=== PATIENT | female | born 1970 | race Native Hawaiian/Other Pacific Islander ===

== ENCOUNTER 2017-06-18 09:06 | Outpatient (CLI) | payer BC ==
[~2017-06-18 09:06] MED LIST: ADIPEX-P37.5 M1 OR; HYDR25TA60 PO
== END 2017-06-18 10:10 | disposition home or self-care (01) ==
LOC: US 09:06
DX: M25.561 Pain in right knee (principal)

== ENCOUNTER 2019-03-13 12:33 | Outpatient (CLI) | payer OTHER | END 2019-03-13 23:55 | disposition home or self-care (01) | LOC: US 12:33 | DX: M25.561 Pain in right knee (principal); Z96.651 Presence of right artificial knee joint; M79.661 Pain in right lower leg; R22.41 Localized swelling, mass and lump, right lower limb ==

== ENCOUNTER 2022-03-15 09:58 | Outpatient (CLI) | payer BC | END 2022-03-15 19:22 | disposition home or self-care (01) | LOC: RAD 09:58 | PROVIDERS: ATTEND Nurse Practitioner | DX: R05.3 Chronic cough (principal) ==

== ENCOUNTER 2023-01-23 09:14 | Outpatient (CLI) | payer BC | END 2023-01-23 19:07 | disposition home or self-care (01) | LOC: US 09:14 | PROVIDERS: ATTEND Internal Medicine | DX: R10.11 Right upper quadrant pain (principal); E11.9 Type 2 diabetes mellitus without complications ==